=== PATIENT | female | born 1945 | race African-American/Black ===

== ENCOUNTER 2021-11-25 09:29 | Inpatient (IN) | payer MEDICARE ==
[2021-11-25] MEDS ORDERED: Ondansetron ODT 4 MG TAB PO PRN (12:54)
[2021-11-25] MEDS ORDERED: Acetaminophen 650 MG Suppository PR PRN (12:54)
[2021-11-25] MEDS ORDERED: Ondansetron PF 4 MG/2 ML Vial IVP PRN (12:54)
[2021-11-25] MEDS ORDERED: Acetaminophen 325 MG TAB PO PRN (12:54)
[2021-11-25] MEDS ORDERED: HumaLOG 300 UNITS/3 ML VIAL SC PRN (14:04)
[2021-11-25] MEDS ORDERED: Dextrose 50% Abboject 50 ML SYRINGE SLOW IVP PRN (14:04)
[2021-11-25] MEDS ORDERED: Dextrose 5% in Water 1,000 ML IV PRN (14:04)
[2021-11-25] MEDS: Furosemide 20 MG/2 ML VIAL SLOW IVP SCH (14:19)
[2021-11-25 14:42] LABS: Magnesium 1.9 mg/dL (1.6-2.6)
[2021-11-25] MEDS: HumaLOG 300 UNITS/3 ML VIAL SC PRN (16:59)
[2021-11-25] MEDS: Carvedilol 12.5 MG TAB PO SCH (20:51)
[2021-11-25] MEDS ORDERED: cloNIDine 0.1 MG TAB PO SCH (21:00)
[2021-11-25] MEDS ORDERED: Simvastatin 10 MG TAB PO SCH (21:00)
[2021-11-26 05:13] VITALS: BMI 31.6
[2021-11-26] MEDS: HumaLOG 300 UNITS/3 ML VIAL SC PRN ×2 (05:19→11:57)
[2021-11-26] MEDS: Furosemide 20 MG/2 ML VIAL SLOW IVP SCH (05:22)
[2021-11-26 05:31] LABS: #Eosinphils 0.1 10x3/uL (0.0-0.5); #Monocytes 0.4 10x3/uL (0.0-1.1); #Neutrophils 2.2 10x3/uL (1.5-8.4); %Basophils 0.7 % (0.0-2.0); %Lymphocytes 37.9 % (18.0-47.0); %Monocytes 8.4 % (0.0-10.0); %Neutrophils 50.8 % (40.0-75.0); Hemoglobin 8.9 g/dL (12.0-15.5); Mean Corpuscular HGB CONC 32.8 g/dL (32.0-36.0); Mean Corpuscular Hemoglobin 27.6 pg (27.0-33.0); Mean Corpuscular Volume 83.9 fl (81.6-98.3); Mean Platelet Volume 9.2 fl (7.4-10.4); Platelet Count 267 10x3/uL (150-450); RBC Distribution Width 14.6 % (11.5-14.5); Red Blood Cell (RBC) Count 3.23 10x6/uL (3.90-5.03); White Blood Cell (WBC) Count 4.4 10x3/uL (3.5-10.5)
[2021-11-26 06:34] LABS: ALT (SGPT) 60 U/L (8-55); AST (SGOT) 42 U/L (5-34); Albumin 3.5 g/dL (3.4-4.8); Alkaline Phosphatase 65 U/L (40-110); Anion Gap 16 mmol/L (10-20); BUN (Urea Nitrogen) 33 mg/dL (9.8-20.1); Bilirubin, Total 0.4 mg/dL (0.2-1.2); Calc. Creatinine Clearance 56 mL/min (70-130); Calcium 9.2 mg/dL (7.8-10.44); Carbon Dioxide 24 mmol/L (23-31); Chloride 103 mmol/L (98-107); Globulin 3.6 g/dL (2.4-3.5); Glucose 176 mg/dL (83-110); Potassium 4.6 mmol/L (3.5-5.1); Protein, Total 7.1 g/dL (5.8-8.1); Sodium 138 mmol/L (136-145)
[2021-11-26] MEDS: Carvedilol 12.5 MG TAB PO SCH (08:35)
[2021-11-26] MEDS ORDERED: Enoxaparin Sodium 40 MG/0.4 ML SYRINGE SC SCH (09:00)
[2021-11-26] MEDS ORDERED: Aspirin Chewable 81 MG TAB PO SCH (09:00)
[2021-11-26 12:02] VITALS: BP 138/60; TEMP 97.9
== END 2021-11-26 13:38 | disposition home or self-care (01) | DRG 291 ==
LOC: CSHTELE 09:29
PROVIDERS: ADMIT Family Medicine; ATTEND Internal Medicine
DX: I13.0 Hypertensive heart and chronic kidney disease with heart failure and stage 1 through stage 4 chronic kidney disease, or unspecified chronic kidney disease (principal); I50.33 Acute on chronic diastolic (congestive) heart failure; N17.9 Acute kidney failure, unspecified; I43 Cardiomyopathy in diseases classified elsewhere; E11.22 Type 2 diabetes mellitus with diabetic chronic kidney disease; E78.2 Mixed hyperlipidemia; D63.1 Anemia in chronic kidney disease; R79.89 Other specified abnormal findings of blood chemistry; R01.1 Cardiac murmur, unspecified; I35.0 Nonrheumatic aortic (valve) stenosis; N18.9 Chronic kidney disease, unspecified; Z89.411 Acquired absence of right great toe; Z79.82 Long term (current) use of aspirin; Z79.84 Long term (current) use of oral hypoglycemic drugs; Z79.899 Other long term (current) drug therapy; Z82.49 Family history of ischemic heart disease and other diseases of the circulatory system
CPT/HCPCS: 36415; 36416; 80053; 83735; 83880; 84443; 85025; 93306; 94760; J1650; J1815; J1940